=== PATIENT | male | born 1970 | race Caucasian/White ===

== ENCOUNTER → 2016-10-17 | Outpatient (CLI) | payer BC ==
[2016-10-17 18:52] LABS: LYME DISEASE AB IGG NEG (NEG); LYME DISEASE AB IGM NEG (NEG)
[2016-10-17 19:15] LABS: SYNOVIAL FLUID APPEARANCE CLEAR; SYNOVIAL FLUID COLOR YELLOW; SYNOVIAL FLUID MONONUC RELAT 90.8 %; SYNOVIAL FLUID POLYNUC RELAT 9.2 %
[2016-10-19 21:25] LABS: LYME DNA PCR CSF OR SYNOVIAL Not detected (Not Detected); LYME DNA SOURCE Synovial Fluid
== END | disposition home or self-care (01) ==
LOC: C.LABBC 15:42
PROVIDERS: ATTEND Orthopaedic Surgery
DX: M25.462 Effusion, left knee (principal)

== ENCOUNTER 2024-11-04 09:46 | Inpatient (IN) ==
--- NOTE | 2024-11-04 10:06 | Emergency Department Note ---
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 He states that this is a pressure sensation. Worse on the L but seems to be central at times. Happens with exertion and at rest. This is associated with retching, nausea and vomiting. He endorses generalized fatigue and malaise. They deny fever or chills. No cough or congestion. Denies chest palpitations. No shortness of breath. They deny abdominal pain. No urinary complaints. No recent changes in bowel movements. Patient denies recent changes in medications or OTC supplements. Patient offers no other complaints, today. ADDITIONAL HISTORY OBTAINED: Per HPI Chronic Medical/Social Conditions Affecting Care: Per HPI PAST MEDICAL HISTORY: See Below PAST SURGICAL HISTORY: See Below FAMILY HISTORY: See Below SOCIAL HISTORY: See Below HOME MEDICATIONS: See Below ALLERGIES: See Below VITALS: See Below PHYSICAL EXAMINATION: GENERAL: Sitting up in bed, alert, well appearing, well nourished, no distress, non-toxic EYE EXAM: normal conjunctiva. PERRL and EOM's grossly intact. OROPHARYNX: no exudate, no erythema, lips, buccal mucosa, and tongue normal and mucous membranes are moist NECK: supple, no nuchal rigidity, no adenopathy, non-tender LUNGS: Clear to auscultation. Normal chest wall mechanics HEART: no murmurs, regular rate, regular rhythm ABDOMEN: abdomen soft, non-tender, no masses, no rebound or guarding. BACK: Back is symmetrical on inspection and there is no deformity, no midline tenderness, no CVA tenderness. SKIN: no rashes and no bruising UPPER EXTREMITIES: upper extremities are grossly normal. LOWER EXTREMITIES: No pitting edema. NEURO EXAM: Normal sensorium, GCS 15, normal speech, no gross weakness of arms, no gross weakness of legs. MEDICAL DECISION MAKING: Differential diagnoses includes but not limited to ACS, stable vs unstable angina, dysrhythmia, viral URI, pneumonia, pericarditis, pneumothorax, costochondritis, MSK strain, PE, hypertensive emergency, psychological causes, esophageal reflux, gastritis In summary, this is a 54 year old male who presented with chest pain. Differential as above. Nursing notes and pertinent past medical records reviewed. Vital signs reviewed and the patient is hypertensive but otherwise afebrile and HDS. History and presentation revealed extensive cancer history with metastatic esophageal cancer but features of presentation are concerning for angina as well as PE. Physical examination revealed as above. As a result of my initial evaluation, plan for ASA load and laboratory workup. He was felt to be moderate to high risk for PE and CT PE was ordered. Diagnostics interpreted by me include EKG and cardiac monitoring as listed below: -Cardiac Monitoring: An order was placed for continuous cardiac monitoring. The monitor shows a rate of 50-60s with regular rhythm. -ECG: EKG independently interpreted by me reveals sinus bradycardia at 58 bpm. There are frequent PVCs present. No significant ST segment changes to suggest STEMI. Intervals are otherwise within normal limits Patient completed laboratory studies and imaging. CXR independently interpreted by me reveals no evidence of focal consolidation to suggest pna. No large pneumothorax or pleural effusion. The patient was managed with IV Zofran as the patient became nauseous while in the emergency department. Patient was loaded with aspirin. Unclear etiology of his symptoms today. Does have risk factors for cardiovascular disease. Would also consider pulmonary embolism given his metastatic cancer. Patient's symptoms could be related to his metastatic cancer as well. Will give GI cocktail. Patient does have a leukocytosis. Coagulation studies are normal. Mild hypokalemia at 3.3 and IV replenishment ordered. No YASEMIN but increased BUN/creatinine ratio. Likely mild dehydration. AST is mildly elevated and could be reactive to cardiovascular disease. Troponin is significantly elevated. There are concerns for acute myocardial injury. Plan for CT PE to investigate further etiologies of potential troponinemia. Patient will need evaluated by cardiology. Plan for serial EKGs. Repeat EKG independently independently by me reveals sinus bradycardia at a rate of [address] segment changes to suggest STEMI. Some T wave inversions and flattening's in the inferior leads. There is poor R wave progression. There are frequent PVCs present on this rhythm strip. Relatively similar to prior. The patient was discussed with the [facility] cardiology who is agreeable to heparin infusion, serial troponins and EKGs. They did not think the patient needed cardiac catheterization at this time. Given the patient's NSTEMI and intermittent chest pain, will plan for admission to the hospitalist service. Ultimately, the decision was made to admit the patient for NSTEMI in the setting of chest pain and metastatic esophageal cancer. I discussed the case with the hospitalist service via telephone/TigerText and they are agreeable to admit the patient to their services. Based on the above, including the patient's age, coexisting illnesses, labs, imaging, and exam findings the decision to treat as an inpatient. I discussed the patient with the hospitalist team who recommended admission to their services. They received the medications, treatments, interventions indicated above and their condition remained guarded. I discussed my findings with the patient and their family and they understand and agree with the treatment plan. All patient / family questions were answered to their satisfaction. Consults/Care Managements Discussions: Per [facility] ER treatment provided: See above Procedures:none Critical Care: I have personally spent 36 minutes of critical care time in direct management of this patient. This includes bedside care, interpretation of diagnostic studies, and testing, discussion with consultants, patient, and family members, and other require inpatient management activities. This 36 minutes is in excess of all separately billable procedures. The chart was completed utilizing [employer] Speech voice recognition software. Grammatical errors, random word insertions, pronoun errors, and incomplete sentences are an occasional consequence of this system due to software limitations, ambient noise, and hardware issues. Any formal questions or concerns about the content, text, or information contained within the body of this dictation should be directly addressed to the physician for clarification. 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 (Chronic 09/30/24) Encounter for pre-operative examination Esophageal cancer (Chronic) Medical History GERD (gastroesophageal reflux disease) Dilated aortic root Aortic root moderately dilated 4.6 cm Proximal ascending aorta mildly dilated 4.2 cm History of COVID-19 ?2020-cold/flu like symptoms; resolved HTN (hypertension) Surgical History History of lung biopsy RLL -09/30/24 Nausea and vomiting after administration of anesthetic agent Hx of tooth extraction History of esophagogastroduodenoscopy (EGD) EUS on 10/10/22> found fungating and ulcerating mass was found in the middle third of the esophagus and in the lower third of the esophagus and stented. Family History Mother Atrial fibrillation Dementia Heart disease Father , unsure of biological father history No problems noted. 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 Required: No Beliefs That Will Affect Care: None marital status: Single Current Living Situation: Alone current occupational status: employed current occupation: [employer] Feels Safe at Home: Yes Assistive Devices: None Allergies Allergies Allergy/AdvReac Type Severity Reaction Status Date / Time fentanyl AdvReac Mild nausea/vomi Verified 11/14/23 15:44 tting Home Meds Home Medications Medication Instructions Recorded Confirmed acetaminophen 500 mg tablet 500 mg PO Q6H PRN Pain 11/07/22 11/04/24 (Tylenol Extra Strength) Results & Data (ED) Vital Signs Vital Signs - 24 hr 11/04/24 09:49 11/04/24 10:18 11/04/24 10:33 Temperature 36.9 C Temperature Source Skin Pulse Rate 64 64 Pulse Rate [Apical] 62 Pulse Rate from SpO2 Sensor Respiratory Rate 19 18 Respiratory Effort / Characteristics Non-Labored Spontaneous Non-Labored Spontaneous Respiratory Depth Normal Normal Respiratory Pattern Regular Blood Pressure 164/110 H Blood Pressure [Left Arm] 141/95 H Blood Pressure Mean 128 Blood Pressure Mean [Left Arm] 110 Pulse Oximetry 96 98 Oxygen Delivery Method Room Air Room Air Sepsis Recent Fever Within 48 Hours No Sepsis New/Unexplained Change in Mental Status N/A Sepsis Action Taken by Nursing No Action Required 11/04/24 10:33 11/04/24 11:18 11/04/24 12:12 Temperature Temperature Source Pulse Rate 60 63 Pulse Rate [Apical] Pulse Rate from SpO2 Sensor 59 L 60 Respiratory Rate 12 22 Respiratory Effort / Characteristics Respiratory Depth Respiratory Pattern Blood Pressure 161/89 H 164/97 H Blood Pressure [Left Arm] Blood Pressure Mean 113 119 Blood Pressure Mean [Left Arm] Pulse Oximetry 98 96 97 Oxygen Delivery Method Room Air Sepsis Recent Fever Within 48 Hours Sepsis New/Unexplained Change in Mental Status Sepsis Action Taken by Nursing 11/04/24 13:03 Temperature Temperature Source Pulse Rate 60 Pulse Rate [Apical] Pulse Rate from SpO2 Sensor 59 L Respiratory Rate 20 Respiratory Effort / Characteristics Respiratory Depth Respiratory Pattern Blood Pressure 128/78 Blood Pressure [Left Arm] Blood Pressure Mean 94 Blood Pressure Mean [Left Arm] Pulse Oximetry 94 Oxygen Delivery Method Sepsis Recent Fever Within 48 Hours Sepsis New/Unexplained Change in Mental Status Sepsis Action Taken by Nursing Laboratory Data 11/05/24 05:23 11/05/24 05:23 Lab Results 11/04/24 11/04/24 Range/Units 10:07 12:09 WBC 22.32 H (4.8-10.8) K/ul RBC 4.74 (4.70-6.10) M/uL Hgb 14.8 (14.0-18.0) g/dl Hct 42.5 (42.0-52.0) % MCV 89.7 (80.0-100.0) fL MCH 31.2 (25.0-34.0) pg MCHC 34.8 (32.0-36.0) g/dL RDW Std Deviation 44.7 (36.4-46.3) fL RDW Coeff of Martin 13.5 (11.5-14.5) % Plt Count 270 (130-400) K/uL MPV 10.0 (9.4-12.4) fL Immature Gran % (Auto) 0.6 % Neut % (Auto) 82.5 % Lymph % (Auto) 7.3 % [place] % (Auto) 9.5 % Eos % (Auto) 0.0 % Baso % (Auto) 0.1 % Neut # (Auto) 18.41 H (1.40-6.50) K/uL Lymph # (Auto) 1.63 (1.20-3.40) K/uL [place] # (Auto) 2.12 H (0.11-0.59) K/uL Eos # (Auto) 0.00 (0.00-0.50) K/uL Baso # (Auto) 0.03 (0.00-0.20) K/uL Immature Gran # (Auto) 0.13 (0.01-0.20) K/uL PT 11.1 (9.0-12.0) Seconds INR 1.0 (0.9-1.1) APTT 25 (21-31) Seconds PTT Ratio 0.9 Sodium 138 (136-145) mmol/L Potassium 3.3 L (3.5-5.1) mmol/L Chloride 102 (98-107) mmol/L Carbon Dioxide 28 (21-32) mmol/L Anion Gap 8 (3-11) BUN 19 (6-23) mg/dl Creatinine 0.57 L (0.6-1.4) mg/dl Est Cr Clr Drug Dosing 184.7 ml/min eGFR 117.96 BUN/Creatinine Ratio 33.3 H (10-20) Glucose 152 H (70-99(Fasting)) mg/dl Calcium 8.8 (8.6-10.3) mg/dl Magnesium 2.0 (1.7-2.4) mg/dl Total Bilirubin 1.1 H (0.2-1.0) mg/dl AST 65 H (13-39) U/L ALT 26 (7-52) U/L Alkaline Phosphatase 52 (34-104) U/L Troponin I High Sens 8464.0 H* 7869.0 H* (0-20) pg/ml B-Natriuretic Peptide 521 H (0-100) pg/ml Total Protein 7.0 (6.0-8.3) gm/dl Albumin 4.4 (3.4-5.0) gm/dl Globulin 2.6 (2.5-4.0) gm/dl Albumin/Globulin Ratio 1.7 (0.9-2) Lipase 8 L (11-82) U/L Procalcitonin < 0.02 (0-0.5) ng/ml Administered Medications Aspirin (Aspirin 81 Mg Ectab) 81 mg PO DAILY [facility] Stop: 12/05/24 08:59 Last Admin: 11/05/24 07:35 Dose: 81 mg Documented By: jamison Atorvastatin Calcium ([facility]atin 40 Mg Tab) [facility] Stop: 12/05/24 08:59 Last Admin: 11/05/24 07:35 Dose: 40 mg Documented By: Heparin Sodium/Dextrose (Heparin 62326 Unit/500 Ml D5w) 25,000 units in 500 mls @ 31 mls/hr IV .Q16H8M [facility]; Protocol Stop: 12/04/24 11:44 Last Titration: 11/05/24 19:05 Dose: 1,550 units/hr, 31 mls/hr Documented By: jamison Co-signed By: CR Titration: 11/05/24 15:58 Dose: 1,550 units/hr, 31 mls/hr Documented By: jamison Co-signed By: DTT Titration: 11/05/24 11:30 Dose: 0 units/hr, 0 mls/hr Documented By: jamison Co-signed By: DTT Titration: 11/05/24 07:12 Dose: 1,550 units/hr, 31 mls/hr Documented By: CR Co-signed By: jamison Admin: 11/05/24 04:18 Dose: 1,550 units/hr, 31 mls/hr Documented By: CR Co-signed By: SKS Titration: 11/05/24 04:18 Dose: Infused Documented By: CR Co-signed By: SKS Titration: 11/04/24 19:08 Dose: 1,550 units/hr, 31 mls/hr Documented By: CR Co-signed By: LAF Admin: 11/04/24 12:10 Dose: 1,550 units/hr, 31 mls/hr Documented By: LJEvelia Co-signed By: BUD Isosorbide Mononitrate (Isosorbide [place] Extended Rel 30 Mg Tabcr) [facility] Stop: 12/05/24 15:29 Last Admin: 11/05/24 16:58 Dose: 30 mg Documented By: jamison Potassium Chloride (Potassium Chloride 20 Meq/15 Ml Udc) 40 meq PO BID GARETH Stop: 12/05/24 20:59 Last Admin: 11/05/24 20:30 Dose: 40 meq Documented By: CR Discontinued Medications Al Hydrox/Mg Hydrox/Simethicone (Aluminum/Magnesium Susp 30 Ml Udc) 30 ml PO NOW STA Stop: 11/04/24 10:08 Last Admin: 11/04/24 14:49 Dose: Not Given Documented By: MALVIN Aspirin (Aspirin Chew 324 Mg) 324 mg PO NOW STA Stop: 11/04/24 10:03 Last Admin: 11/04/24 10:27 Dose: 324 mg Documented By: OSEAS Fentanyl Citrate (Fentanyl Citrate Pf 100 Mcg/2 Ml Vial) Confirm Administered Dose 100 mcg .ROUTE .STK-MED ONE Stop: 11/05/24 14:26 Last Admin: 11/05/24 15:22 Dose: Not Given Documented By: CARINE Heparin Sodium (Porcine) (Heparin Sod (Porcine) 1000 Unit/Ml) 1 units IV NOW ONE Stop: 11/04/24 11:38 Last Admin: 11/04/24 12:11 Dose: 7,000 units Documented By: MALVIN Co-signed By: BUD Heparin Sodium (Porcine) (Heparin (Porcine) 1000 Unit/Ml 10 Ml ([employer] Use Only)) Confirm Administered Dose 10,000 units .ROUTE .STK-MED ONE Stop: 11/05/24 14:26 Last Admin: 11/05/24 15:22 Dose: Not Given Documented By: CARINE Heparin Sodium/Dextrose (Heparin Iv Adult Wt-Based Standard W/ Initial Bolus Protocol) 1 each IV NOW STA; Protocol Stop: 11/04/24 11:23 Last Admin: 11/05/24 07:25 Dose: Not Given Documented By: jamison Heparin Sodium/Sodium Chloride (Heparin In Nss Infusion 1000 Unit/500 Ml (2 U/Ml) Bag) Confirm Administered Dose 3,000 units IV .STK-MED ONE Stop: 11/05/24 14:26 Last Admin: 11/05/24 15:22 Dose: 3,000 units Documented By: CARINE Famotidine (Pepcid 20mg Iv Push) 20 mg in 5 mls @ 2.5 mls/min IV NOW STA Stop: 11/04/24 10:08 Last Admin: 11/04/24 10:28 Dose: 2.5 mls/min Documented By: OSEAS Potassium Chloride (K Timothy / Wtr) 10 meq in 100 mls @ 100 mls/hr IV Q1H GAREHT Stop: 11/04/24 13:59 Last Infusion: 11/04/24 14:49 Dose: Infused Documented By: Admin: 11/04/24 13:27 Dose: 100 mls/hr Documented By: Infusion: 11/04/24 13:16 Dose: Infused Documented By: Admin: 11/04/24 12:16 Dose: 100 mls/hr Documented By: Infusion: 11/04/24 12:14 Dose: Infused Documented By: Admin: 11/04/24 11:14 Dose: 100 mls/hr Documented By: MALVIN Sodium Chloride (Nss) 500 mls @ 999 mls/hr IV .Q31M ONE Stop: 11/04/24 11:25 Last Infusion: 11/04/24 14:49 Dose: Infused Documented By: Admin: 11/04/24 11:14 Dose: 999 mls/hr Documented By: MALVIN Potassium Chloride (K Timothy / Wtr) 10 meq in 100 mls @ 100 mls/hr IV Q1H GARETH Stop: 11/05/24 11:29 Last Infusion: 11/05/24 17:35 Dose: Infused Documented By: Admin: 11/05/24 16:05 Dose: 100 mls/hr Documented By: Admin: 11/05/24 15:56 Dose: Not Given Documented By: Infusion: 11/05/24 12:01 Dose: Infused Documented By: Admin: 11/05/24 09:57 Dose: 60 mls/hr Documented By: Infusion: 11/05/24 09:57 Dose: Infused Documented By: [facility] Admin: 11/05/24 07:35 Dose: 100 mls/hr Documented By: Iodixanol (Iodixanol (Visipaque) 320 Mg/Ml 100ml) Confirm Administered Dose 1 ml IV .STK-MED ONE Stop: 11/05/24 14:26 Last Admin: 11/05/24 15:22 Dose: Not Given Documented By: CARINE Ioversol (Optiray 320 125ml) 118 ml IV ONCE ONE Stop: 11/04/24 11:09 Last Admin: 11/04/24 11:09 Dose: 118 ml Documented By: ANJU Ioversol (Optiray 350) Confirm Administered Dose 1 ml .ROUTE .STK-MED ONE Stop: 11/05/24 14:26 Last Admin: 11/05/24 16:23 Dose: Not Given Documented By: jamison Midazolam HCl (Midazolam Hcl 1 Mg/Ml 2ml Vial) Confirm Administered Dose 2 mg .ROUTE .STK-MED ONE Stop: 11/05/24 14:26 Last Admin: 11/05/24 15:22 Dose: 2 mg Documented By: CARINE Morphine Sulfate (Morphine Sulfate 4 Mg/Ml 1 Ml Carp\Vial) Confirm Administered Dose 4 mg .ROUTE .STK-MED ONE Stop: 11/05/24 02:04 Last Admin: 11/05/24 02:26 Dose: 4 mg Documented By: JIM Morphine Sulfate (Morphine Sulfate 10 Mg/Ml Carp/Vial) Confirm Administered Dose 10 mg .ROUTE .STK-MED ONE Stop: 11/05/24 14:39 Last Increment: 11/05/24 15:23 Dose: 6 mg Documented By: CARINE Nicardipine HCl (Nicardipine 2,000 Mcg/20 Ml Syr) Confirm Administered Dose 2,000 mcg .ROUTE .STK-MED ONE Stop: 11/05/24 14:26 Last Admin: 11/05/24 15:23 Dose: 2,000 mcg Documented By: CARINE Nitroglycerin (Nitroglycerin Sl 0.4 Mg/Tab Tab) 0.4 mg SL NOW STA Stop: 11/04/24 11:23 Last Admin: 11/04/24 12:16 Dose: 0.4 mg Documented By: MALVIN Nitroglycerin (Nitroglycerin Sl 0.4 Mg/Tab Tab) 0.4 mg SL NOW STA Stop: 11/05/24 01:49 Last Admin: 11/05/24 02:25 Dose: Not Given Documented By: JIM Nitroglycerin/Dextrose (Nitroglycerin/D5w 100mcg/Ml 20ml Syr) Confirm Administered Dose 2,000 mcg .ROUTE .STK-MED ONE Stop: 11/05/24 14:26 Last Admin: 11/05/24 15:23 Dose: 2,000 mcg Documented By: CARINE Ondansetron HCl (Ondansetron Inj 2 Mg/Ml 2 Ml Vial) 4 mg IV NOW STA Stop: 11/04/24 10:30 Last Admin: 11/04/24 10:32 Dose: 4 mg Documented By: GCC Potassium Chloride (Potassium Chloride Crtab 20 Meq Tabcr) 40 meq PO NOW STA Stop: 11/05/24 06:27 Last Admin: 11/05/24 06:42 Dose: 40 meq Documented By: CR Potassium Chloride (Potassium Chloride Crtab 20 Meq Tabcr) 40 meq PO ONE ONE Stop: 11/05/24 09:01 Last Admin: 11/05/24 09:58 Dose: Not Given Documented By: [facility] Imaging Data Radiologist's Impression: Chest X-Ray 11/04/24 09:55 XR chest 1V portable CLINICAL HISTORY: Chest pain, nonspecific COMPARISON STUDY: None FINDINGS: Heart size and pulmonary vasculature are normal. No consolidation or pleural effusion. No pneumothorax. IMPRESSION: No acute findings. ACT 112: Negative or not required by law. Electronically signed by: Matthew Rea M.D. 11/04/2024 10:30 AM Chest CTA 11/04/24 10:06 CT angio chest PE protocol CT DOSE: 865.79 mGy.cm HISTORY: 54 years-old Male with PE, metastatic esophageal cancer with chest pain. Acute chest pain and shortness of breath in a patient with history of esophageal carcinoma TECHNIQUE: Multiple CTA images of the chest were obtained after the intravenous administration of 118 ml Optiray. Coronal and sagittal MIPS were obtained from the axial data set and were submitted for review. All measurements were obtained according to NASCET criteria. A dose lowering technique was utilized adhering to the principles of ALARA. COMPARISON: Radiation therapy scan of the chest 10/28/2024, PET CT 09/08/2024 FINDINGS: CTA: Mild cardiomegaly. There is no pericardial effusion. Mild fusiform dilation of the ascending thoracic aorta, 4.1 x 4.3 cm. The aorta is not well evaluated secondary to contrast bolus timing. No pulmonary emboli are identified. CT CHEST: No thyroid nodule or pathologically enlarged lymph nodes identified. Postoperative changes of esophagectomy with gastric pull-through again noted. 1.5 x 1.2 cm solid nodule within the basal right lower lobe on image 79 series 4 similar prior where it measured 1.4 cm and was hypermetabolic on the PET/CT. Additional 6 mm solid nodule of the left lower lobe on image 87 is also stable. Central airways are patent. No new pulmonary nodules are identified. No acute upper abdominal abnormality. The soft tissues are within normal limits. No acute fracture or destructive bone lesion identified. IMPRESSION: 1. No pulmonary emboli identified. 2. The two solid pulmonary nodules seen on the recent PET/CT measuring up to 1.5 cm appear stable in size and are again suspicious for metastatic disease. 3. No lymphadenopathy. 4. Mild dilation of the ascending thoracic aorta, 4.3 cm. ACT 112: Negative or not required by law. The above report was generated using voice recognition software. It may contain grammatical, syntax or spelling errors. Electronically signed by: Michelet Allen M.D. 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
[2024-11-04 10:23] LABS: Hematocrit (blood only) 42.5 % (42.0-52.0); Hemoglobin 14.8 g/dl (14.0-18.0); Immature Granulocytes # (auto) 0.13 K/uL (0.01-0.20); Immature Granulocytes % (auto) 0.6 %; Mean Corpuscular Hemoglobin 31.2 pg (25.0-34.0); Mean Corpuscular Volume 89.7 fL (80.0-100.0); Platelet Count 270 K/uL (130-400); RDW Standard Deviation 44.7 fL (36.4-46.3); Red Blood Count 4.74 M/uL (4.70-6.10); White Blood Count 22.32 K/ul (4.8-10.8)
[2024-11-04] MEDS: ASPIRIN CHEW 324 MG PO STA (10:27)
[2024-11-04] MEDS: ALUMINUM/MAGNESIUM SUSP 30 ML UDC PO STA (10:27)
[2024-11-04] MEDS: FAMOTIDINE 20MG IV PUSH 20 MG/5 ML SYR IV STA (10:28)
[2024-11-04] MEDS: ONDANSETRON INJ 2 MG/ML 2 ML VIAL IV STA (10:32)
--- NOTE | 2024-11-04 10:32 | XRay Report ---
XR chest 1V portable CLINICAL HISTORY: Chest pain, nonspecific COMPARISON STUDY: None FINDINGS: Heart size and pulmonary vasculature are normal. No consolidation or pleural effusion. No p neumothorax. IMPRESSION: No acute findings. ACT 112: Negative or not required by law. Electronically signed by: Matthew Rea M.D. 11/04/2024 10:30 AM
[2024-11-04 10:44] LABS: Alanine Aminotransferase 26.0 U/L (7-52); Albumin Globulin Ratio 1.7 (0.9-2); Alkaline Phosphatase 52.0 U/L (34-104); Anion Gap 8.0 (3-11); Bilirubin,Total 1.1 mg/dl (0.2-1.0); Blood Urea Nitrogen 19.0 mg/dl (6-23); Calcium 8.8 mg/dl (8.6-10.3); Carbon Dioxide 28.0 mmol/L (21-32); Chloride 102.0 mmol/L (98-107); Creatinine Clr Calc Pharmacy 184.7 ml/min; Globulin 2.6 gm/dl (2.5-4.0); Glucose 152.0 mg/dl (70-99(Fasting)); Lipase 8.0 U/L (11-82); Magnesium 2.0 mg/dl (1.7-2.4); Potassium 3.3 mmol/L (3.5-5.1); Sodium 138.0 mmol/L (136-145); Total Protein 7.0 gm/dl (6.0-8.3)
[2024-11-04 10:49] LABS: INR 1.0 (0.9-1.1); Partial Thromboplastin Time 25 Seconds (21-31); Prothrombin Time 11.1 Seconds (9.0-12.0)
[2024-11-04] MEDS: OPTIRAY 320 125ml IV ONE (11:09)
[2024-11-04] MEDS: POTASSIUM CHLORIDE / WTR 10 MEQ/100 ML PLCT IV SCH (11:14)
[2024-11-04] MEDS: SODIUM CHLORIDE 0.9% 500 ML IV ONE (11:14)
--- NOTE | 2024-11-04 11:42 | CT Scan Report ---
CT angio chest PE protocol CT DOSE: 865.79 mGy.cm HISTORY: 54 years-old Male with PE, metastatic esophageal cancer with chest pain. Acute chest pain and shortness of breath in a patient with history of esophageal carcinoma TECHNIQUE: Multiple CTA images of the chest were obtained after the intravenous administration of 118 ml Optiray. Coronal and sagittal MIPS were obtained from the axial data set and were submitted for review. All measurements were obtained according to NASCET criteria. A dose lowering technique was u tilized adhering to the principles of ALARA. COMPARISON: Radiation therapy scan of the chest 10/28/2024, PET CT 09/08/2024 FINDINGS: CTA: Mild cardiomegaly. There is no pericardial effusion. Mild fusiform dilation of the ascending thoracic aorta, 4.1 x 4.3 cm. The aorta is not well evaluated secondary to contrast bolus timing. No pulmonar y emboli are identified. CT CHEST: No thyroid nodule or pathologically enlarged lymph nodes identified. Postoperative changes of esophag ectomy with gastric pull-through again noted. 1.5 x 1.2 cm solid nodule within the basal right lower lobe on image 79 series 4 similar prior where it measured 1.4 cm and was hypermetabolic on the PET/CT . Additional 6 mm solid nodule of the left lower lobe on image 87 is also stable. Central airways are patent. No new pulmonary nodules are identified. No acute upper abdominal abnormality. The soft tissues are within normal limits. No acute fracture or destructive bone lesion identified. IMPRESSION: 1. No pulmonary emboli identified. 2. The two solid pulmonary nodules seen on the recent PET/CT measuring up to 1.5 cm appear stable in size and are again suspicious for metastatic disease. 3. No lymphadenopathy. 4. Mild dilation of the ascending thoracic aorta, 4.3 cm. ACT 112: Negative or not required by law. The above report was generated using voice recognition software. It may contain grammatical, syntax o r spelling errors. Electronically signed by: Michelet Allen M.D. 11/04/2024 11:41 AM
[2024-11-04] MEDS: HEPARIN 25000 UNIT/500 ML D5W 25,000 UNITS/500 ML BAG IV SCH (12:10)
[2024-11-04] MEDS: HEPARIN SOD (PORCINE) 1000 UNIT/ML IV ONE (12:11)
[2024-11-04] MEDS: NITROGLYCERIN SL 0.4 MG/TAB TAB SL STA (12:16)
--- NOTE | 2024-11-04 12:25 | Electrocardiogram Report ---
Test Reason : Blood Pressure : */* mmHG Vent. Rate : 58 BPM Atrial Rate : 58 BPM P-R Int : 156 ms QRS Dur : 110 ms QT Int : 458 ms P-R-T Axes : 48 1 -37 degrees QTcB Int : 449 ms Sinus bradycardia with frequent Premature ventricular complexes Inferior infarct (cited on or before 27-Sep-2023) Cannot rule out Anterior infarct , age undetermined Abnormal ECG When compared with ECG of 27-Sep-2023 12:30, Premature ventricular complexes are now Present Minimal criteria for Anterior infarct are now Present Inverted T waves have replaced nonspecific T wave abnormality in Inferior leads Confirmed by Gutierrez Costa ([id number]) on 11/04/2024 12:25:13 PM Referred By: Confirmed By: Gutierrez Costa
--- NOTE | 2024-11-04 13:05 | Communication Note ---
Date of Service: November 04, 2024 Attending addendum: The patient was seen and examined in emergency room He has significant past medical history of esophageal adenocarcinoma status post surgery and radiation treatment about a year ago He has been complaining of chest pain for about 4 to 6 weeks and now the pain has been radiating to the back and also to the arms with associated shortness of breath Has not been getting eating or drinking enough for the last few days or so Denies any fever and chills, any cough, any abdominal pain but complains to have nausea and vomiting On examination Distress due to epigastric/central chest discomfort Hemodynamically stable and is afebrile Chestclear to auscultation bilaterally Abdomenbenign HeartS1-S2, regular Extremitiesno edema His admission labs, EKG and imaging studies reviewed Significant findings of white count 22,000 without any evidence of infection and very high troponin of 8464 without any significant EKG changes CT of the chest did not show any pulmonary embolism but it did show 2 solid pulmonary nodules seen on recent PET/CT imaging about 1.5 cm suspected to be metastatic disease The ER physician did discuss with the document manager and he will be put on intravenous heparin, serial troponins and echocardiogram Chest pain with very high troponin to rule out ACS Esophageal adenocarcinoma with ongoing problem with swallowing recently Scheduled for outpatient radiation treatment Will need EGD which is scheduled as an outpatient as well but that can be expedited due to recent increased problem with swallowing Agree with assessment and plan as outlined above by Cheryle Ayala PA-C and take the full responsibility of care in the hospital Dr Evelia Mendoza
--- NOTE | 2024-11-04 13:32 | History & Physical Report ---
Date of Service November 04, 2024 Assessment & Plan (1) Chest pain: (2) Elevated troponin: Plan: Patient is a 54-year-old male with past medical history significant for lower esophageal adenocarcinoma s/p neoadjuvant chemotherapy plus radiation therapy and esophagectomy with bilateral lower lobe lung metastases, HTN and fusiform enlargement of the ascending thoracic aorta who presented to the ED with complaint of intermittent chest pain episodes x past several weeks. Pain initially started primarily in the left arm, but over the past several weeks, it has progressed in intensity, frequency and now it radiates across the chest wall into the right shoulder and around the back. Associated sx including SOB, diaphoresis and N/V. Occurs both at rest and with exertion. Initial troponin 8464, repeat troponin 7869 EKG: sinus bradycardia with occasional PVCs CXR grossly unremarkable Chest CTA: no PE identified, mild dilation of the ascending thoracic aorta ( unchanged from prior imaging as outlined below) ED provider discussed case with on-call SD bpm analyst, Dr. Costa, who recommended initiation of IV heparin and 324mg ASA load TTE ordered and pending Appreciate formal cardiology consult (patient previously seen by [facility] cardiology in the OP setting therefore Dr. Meyer consulted) S/p SL nitroglycerin x 1 in ED Patient still with some chest discomfort at the time of my eval, primarily midsternal, but feels it has significantly improved Follow troponin trend EKG with chest pain as needed Check lipid panel, A1c (A1c previously 5.9% 2yr ago) Will keep NPO at SD pending cardiology eval (3) Leukocytosis: Plan: WBC 22K on admission No clear source of infection identified at this time Procalcitonin negative Will check blood cultures for completeness however will monitor off ABX for now given no clear infectious source Possibly reactive ISO above, continue to monitor (4) 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: Plan: S/p neoadjuvant chemotherapy as well as radiation and esophagectomy in 2022 CTAP done in September 2023 at [facility] showed no evidence of recurrent disease CT chest done on 04/10/24 showed slight enlargement of the previously noted right lower lobe of the noted by about 2mm, currently about 7mm, new 3mm left lower lobe nodule Repeat CT scan of the chest on 08/04/24 showed further enlargement of the bilateral lower lobe lung nodules which was suspicious Underwent biopsy of right lower lobe lung nodule on 09/30/24 which confirmed metastatic adenocarcinoma Patient scheduled to undergo SBRT treatment starting next week at [facility] for the right lower lobe lung nodule Scheduled for upper GI endoscopic evaluation on 12/07/24 Has been dealing with poor appetite over past few days, admits to poor dentition which can at times make swallowing difficult Will obtain HEAD BELLHOP CAPTAIN eval given his history and risk of aspiration development however patient denies any lula aspiration episodes 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 Mendoza. Please see addendum. I spent a total of 68 minutes coordinating, documenting, and providing care for this patient excluding time spent in the performance of separately billed services or time spent by another provider/QHP. This included personally reviewing all current laboratories and imaging studies, medical reconciliation, outpatient chart review and discussion with specialists. This chart was completed in part utilizing Speech Voice Recognition Software. Grammatical errors, random word insertions, pronoun errors, and incomplete sentences are an occasional consequence of this system due to software limitations, ambient noise, and hardware issues. Any formal questions or concerns about the content, text, or information contained within the body of this dictation should be directly addressed to the provider for clarification. History of Present Illness Chief Complaint: Chest pain Primary Care Provider: Moe Doan MD Patient is a 54-year-old male with past medical history significant for lower esophageal adenocarcinoma s/p neoadjuvant chemotherapy plus radiation therapy and esophagectomy with bilateral lower lobe lung metastases, HTN and fusiform enlargement of the ascending thoracic aorta who presented to the ED with complaint of intermittent chest pain x past several weeks. History obtained from the patient, discussion with ED provider and associated chart review. Admits to intermittent chest pain for the past several weeks. Pain occurs both at rest and with exertion. Pain initially started primarily in the left arm, but over the past several weeks, it has progressed in intensity, frequency and now it radiates across the chest wall into the right shoulder and around the back. Experiencing some paresthesias in his left arm at times with the pain. He also typically experiences SOB, diaphoresis and nausea with these chest pain episodes. Mentions he has vomited a few times during these events as well. Patient had seen his PCP on 11/02/2024, for these complaints. Had EKG done at that time which revealed sinus bradycardia without ischemic changes. It was recommended that he come to the ED for further evaluation at that time however he refused. He was prescribed SL nitroglycerin, though, which he did use 1 time Saturday evening and it seemed to help his pain subside at the time. However, his pain returned, which prompted him to come to the ED today. History of HTN, prediabetes and tobacco use. Stopped smoking after his esophageal cancer diagnosis in 2022. Hgb A1c 5.9% 2yr ago. Recreational marijuana use. No alcohol use. Admits to somewhat poor po intake for the past few days. Feels he has no appetite due to recent intensity and increased frequency of his chest pain. No recorded fevers, but feels he has been "running hot." Tolerates a soft bite- sized diet. Denies any lula aspiration events. 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 (Chronic 09/30/24) Encounter for pre-operative examination Esophageal cancer (Chronic) Medical History GERD (gastroesophageal reflux disease) Dilated aortic root Aortic root moderately dilated 4.6 cm Proximal ascending aorta mildly dilated 4.2 cm History of COVID-19 ?2020-cold/flu like symptoms; resolved HTN (hypertension) Surgical History History of lung biopsy RLL -09/30/24 Nausea and vomiting after administration of anesthetic agent Hx of tooth extraction History of esophagogastroduodenoscopy (EGD) EUS on 10/10/22> found fungating and ulcerating mass was found in the middle third of the esophagus and in the lower third of the esophagus and stented. Family History Mother Atrial fibrillation Dementia Heart disease Father , unsure of biological father history No problems noted. Grandmother (Maternal) Diabetes mellitus, type II Other No family history of adverse response to anesthesia Social History Smoking Status: Never smoker Tobacco Type: Cigarettes and Smokeless Tobacco (Dip or Chew) Cigarettes Per Day: 10/09/22; Second Hand Exposure: No; Do You Dip or Chew Tobacco: Yes (quit 10/09/22); Hx Alcohol Use: No Hx Substance Use: No Preferred Language: Iraqi Communication Ability: Effective Visual Impairment: No Limitations Hearing Ability: Normal Sales Support Engineer Required: No Beliefs That Will Affect Care: None marital status: Single Current Living Situation: Alone current occupational status: employed 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 Physical Exam Physical Exam: General: M, mild discomfort with transient CP but NAD, A&Ox3 HEENT: Normocephalic, atraumatic, moist mucous membranes Respiratory: Normal respiratory effort, CTAB Cardiovascular: RRR, normal peripheral pulses, no BLE edema Abdomen/GI: Normal bowel sounds, soft, nontender to palpation in all quadrants Extremities/MSK: No cyanosis or clubbing, extremities motor strength intact, moves all extremities Neurologic: No overt focal deficits, CN's II-XI not formally tested but appear grossly intact bilaterally Results & Data Results & Data Vital Signs (Past 12 Hours) Vital Signs Temp Pulse Pulse Resp BP BP Pulse Ox 11/04/24 12:12 63 22 164/97 H 97 11/04/24 11:18 60 12 161/89 H 96 11/04/24 10:33 98 11/04/24 10:33 62 18 141/95 H 98 11/04/24 10:18 64 11/04/24 09:49 36.9 C 64 19 164/110 H 96 O2 Del Method 11/04/24 12:12 11/04/24 11:18 11/04/24 10:33 Room Air 11/04/24 10:33 Room Air 11/04/24 10:18 11/04/24 09:49 Room Air Laboratory Results Short CBC 11/04/24 Range/Units 10:07 WBC 22.32 H (4.8-10.8) K/ul Hgb 14.8 (14.0-18.0) g/dl Hct 42.5 (42.0-52.0) % Plt Count 270 (130-400) K/uL BMP 11/04/24 10:07 Sodium 138 Potassium 3.3 L Chloride 102 Carbon Dioxide 28 BUN 19 Creatinine 0.57 L Glucose 152 H Calcium 8.8 Liver Function 11/04/24 Range/Units 10:07 Total Bilirubin 1.1 H (0.2-1.0) mg/dl AST 65 H (13-39) U/L ALT 26 (7-52) U/L Alkaline Phosphatase 52 (34-104) U/L Albumin 4.4 (3.4-5.0) gm/dl Diagnostic Findings Chest X-Ray 11/04/24 09:55 XR chest 1V portable CLINICAL HISTORY: Chest pain, nonspecific COMPARISON STUDY: None FINDINGS: Heart size and pulmonary vasculature are normal. No consolidation or pleural effusion. No pneumothorax. IMPRESSION: No acute findings. ACT 112: Negative or not required by law. Electronically signed by: Matthew Rea M.D. 11/04/2024 10:30 AM Chest CTA 11/04/24 10:06 CT angio chest PE protocol CT DOSE: 865.79 mGy.cm HISTORY: 54 years-old Male with PE, metastatic esophageal cancer with chest pain. Acute chest pain and shortness of breath in a patient with history of esophageal carcinoma TECHNIQUE: Multiple CTA images of the chest were obtained after the intravenous administration of 118 ml Optiray. Coronal and sagittal MIPS were obtained from the axial data set and were submitted for review. All measurements were obtained according to NASCET criteria. A dose lowering technique was utilized adhering to the principles of ALARA. COMPARISON: Radiation therapy scan of the chest 10/28/2024, PET CT 09/08/2024 FINDINGS: CTA: Mild cardiomegaly. There is no pericardial effusion. Mild fusiform dilation of the ascending thoracic aorta, 4.1 x 4.3 cm. The aorta is not well evaluated secondary to contrast bolus timing. No pulmonary emboli are identified. CT CHEST: No thyroid nodule or pathologically enlarged lymph nodes identified. Postoperative changes of esophagectomy with gastric pull-through again noted. 1.5 x 1.2 cm solid nodule within the basal right lower lobe on image 79 series 4 similar prior where it measured 1.4 cm and was hypermetabolic on the PET/CT. Additional 6 mm solid nodule of the left lower lobe on image 87 is also stable. Central airways are patent. No new pulmonary nodules are identified. No acute upper abdominal abnormality. The soft tissues are within normal limits. No acute fracture or destructive bone lesion identified. IMPRESSION: 1. No pulmonary emboli identified. 2. The two solid pulmonary nodules seen on the recent PET/CT measuring up to 1.5 cm appear stable in size and are again suspicious for metastatic disease. 3. No lymphadenopathy. 4. Mild dilation of the ascending thoracic aorta, 4.3 cm. ACT 112: Negative or not required by law. The above report was generated using voice recognition software. It may contain grammatical, syntax or spelling errors. Electronically signed by: Michelet Allen M.D. 11/04/2024 11:41 AM Medications Administered Potassium Chloride (K Timothy / Wtr) 10 meq in 100 mls @ 100 mls/hr IV Q1H [facility] Stop: 11/04/24 13:59 Last Admin: 11/04/24 12:16 Dose: 100 mls/hr Documented By: Infusion: 11/04/24 12:14 Dose: Infused Documented By: Admin: 11/04/24 11:14 Dose: 100 mls/hr Documented By: MALVIN Heparin Sodium/Dextrose (Heparin 82292 Unit/500 Ml D5w) 25,000 units in 500 mls @ 31 mls/hr IV .Q16H8M [facility]; Protocol Stop: 12/04/24 11:44 Last Admin: 11/04/24 12:10 Dose: 1,550 units/hr, 31 mls/hr Documented By: MALVIN Co-signed By: BUD Discontinued Medications Aspirin (Aspirin Chew 324 Mg) 324 mg PO NOW STA Stop: 11/04/24 10:03 Last Admin: 11/04/24 10:27 Dose: 324 mg Documented By: OSEAS Heparin Sodium (Porcine) (Heparin Sod (Porcine) 1000 Unit/Ml) 1 units IV NOW ONE Stop: 11/04/24 11:38 Last Admin: 11/04/24 12:11 Dose: 7,000 units Documented By: MALVIN Co-signed By: BUD Famotidine (Pepcid 20mg Iv Push) 20 mg in 5 mls @ 2.5 mls/min IV NOW STA Stop: 11/04/24 10:08 Last Admin: 11/04/24 10:28 Dose: 2.5 mls/min Documented By: OSEAS Sodium Chloride (Nss) 500 mls @ 999 mls/hr IV .Q31M ONE Stop: 11/04/24 11:25 Last Admin: 11/04/24 11:14 Dose: 999 mls/hr Documented By: MALVIN Ioversol (Optiray 320 125ml) 118 ml IV ONCE ONE Stop: 11/04/24 11:09 Last Admin: 11/04/24 11:09 Dose: 118 ml Documented By: ANJU Nitroglycerin (Nitroglycerin Sl 0.4 Mg/Tab Tab) 0.4 mg SL NOW STA Stop: 11/04/24 11:23 Last Admin: 11/04/24 12:16 Dose: 0.4 mg Documented By: MALVIN Ondansetron HCl (Ondansetron Inj 2 Mg/Ml 2 Ml Vial) 4 mg IV NOW STA Stop: 11/04/24 10:30 Last Admin: 11/04/24 10:32 Dose: 4 mg Documented By: OSEAS Code Status & VTE Plan Code Status FULL CODE - As per discussion with the patient at bedside in the ED. VTE Prophylaxis Plan VTE Prophylaxis will be ordered: Yes (1) Chest pain Chest pain type: unspecified Qualified Code(s): R07.9 - Chest pain, unspecified (3) Leukocytosis Leukocytosis type: unspecified Qualified Code(s): D72.829 - Elevated white blood cell count, unspecified
--- NOTE | 2024-11-04 14:22 | Cardiology Consultation ---
Date of Consultation November 04, 2024 Assessment & Plan (1) Chest pain: (2) NSTEMI (non-ST elevated myocardial infarction): (3) Hypokalemia: (4) Ascending aorta enlargement: (5) Esophageal cancer: Plan Assessment: 54 year old male with history of esophageal cancer s/p esop hagectomy/chemo and radiation, and mets to the lungs that presents with several weeks of crescendo chest pain that has gotten progressively worse over past several weeks with a significant event 2 night ago requiring SL NTG. EKG with suggestion of prior inferior infarct and possible anterior event. Troponin with modest elevation. Cardiology consulted for further evaluation and recommendations. 1. Chest pain 2. NSTEMI -patient with several weeks of chest pain described in a crescendo pattern concerning for angina. No prior history of CAD, but does endorse family history as well as multiple risk factors. -Significant Chest pain event 2 nights ago with relief after taking SL NTG -Troponin with modest elevation, heparin gtt has been started. -Review of telemetry shows SR with occasional PVC's. -H/H, and Platelet count stable. -Start ASA 81mg -NPO after midnight. -Echocardiogram pending 3. Hypokalemia -Currently receiving supplementation 4. Ascending aorta enlargement -History of echo in 2022 showing ascending aorta enlargement of 4.3cm -Echo pending 5. Esophageal cancer -Prior esophagectomy with chemo and radiation, recent dx of lung mets confirmed by recent CT guided percutaneous RLL lung lesion biopsy -Ongoing management per primary team and Heme/Onc. Follows with Dr. Schofield. Case has been discussed with Dr. Meyer. Further recommendations regarding plan of care as per his assessment. I spent a total of 55 minutes on the date of service in preparation, delivery, documentation of the care provided to the patient excluding any time spent in the performance of separately billed services. ISIDRA Eid [facility] Cardiology [facility] Supervising Physician Co-Signing Physician Notes Attending attestation: Case reviewed with the advanced practitioner. I have personally performed a history and physical examination on the patient. I have reviewed the advanced practitioner's documentation on the date of service referenced in note, and I agree with, and take responsibility for the plan of care. Subjective: Patient with crescendo angina onset 11/02/24. Currently comfortable without chest pain. Heparin infusion. Exam: CV: regular rhythm, No murmurs, no edema Data: Summary of transthoracic echocardiogram performed today 11/04/2024 and int erpreted dependently: Sinus rhythm with occasional PVCs present during echocardiogram study. There is focal hypokinesis of the basal and mid inferior wall and basal posterior wall with mild diffuse hypokinesis otherwise. The left ventricle is mildly dilated. Left ventricular systolic function is moderately reduced. Left Ventricular Ejection Fraction = 35-40%. Grade I diastolic dysfunction, (abnormal relaxation pattern). Mild aortic regurgitation is present. Aortic root is moderately enlarged with diameter of 4.8 cm. The proximal ascending aorta is not visualized adequately enough to allow for measurement. Compared to the outpatient study performed in 2022, regional wall motion abnormalities are now noted, as well as mild left ventricular chamber dilatation and a moderately reduced ejection fraction. The aortic root enlargement and mild aortic valve regurgitation was noted on the previous study. EKG performed today reveals sinus rhythm with new T wave approximator leads which is a new finding for him. Impression/ Plan: NSTEMI , HS troponin Stage IV esophageal CA, two lung nodules 1.5 cm, recent CT guided biopsy September , h/o esophagectomy 01/2023 4.8 cm aortic root, 4.3 cm ascending aorta, mild aortic regurgitation Newly recognized moderate LV systolic dysfunction, likely ischemic CM * ASA 81 mg daily, heparin gtt, atorvastatin. * Plan for cardiac catheterization tomorrow. * No metoprolol as HR in 50s to 60s at baseline * If pt has recurrent CP , would add topical nitroglycerin paste I spent a total of 30 minutes coordinating, documenting, and providing care for this patient excluding time spent in the performance of separately billed services or time spent by another provider. Brent Meyer DO History of Present Illness Reason for Consultation: "Chest pain, very high troponin" Requesting Physician: Tommie morrow History of Present Illness HPI: patient is a 54 year old male with PMHx significant for lower esophageal adenocarcinoma s/p neoadjuvant chemotherapy plus radiation therapy and esophagectomy, Bilateral lower lobe lung metastases, HTN, enlargement of the ascending thoracic aorta, HTN, prediabetes and tobacco use who presents with several weeks of chest pain. Reports that the pain is intermittent in nature, occurs with both rest and exertion, worse with exertion. patient feels the pain initially started in his left arm but now radiates across the chest. Describes the pain as a dull pressure that then crescendos and becomes extremely sharp and intense. Episodes last approx 45 minutes and then subside. Patient did see her family doctor on 11/02/24 for these symptoms. EKG showed SB with no acute EKG changes; however, there is inverted T waves in lead III which was cited previously. he was recommended to present to the ER at that time, but declined. His pain returned that evening and patient reports that it was "the worse so far yet". he provides the same description of his pain, but reports associated nausea and vomiting with the event. Patient somewhat attributes the nausea and vomiting to having increased secretions from his prior cancer surgery/status. Patient states that he took 1 SL NTG and felt "so much better", but when the pain returned today he felt that he needed to present. Patient's mother is , but patient knows she had a significant history of coronary disease. His step siblings are on their way to the hospital and he states they have much better knowledge of her health history. Patient had no contact with his biological father in adulthood and does not know of his medical history. EKG on arrival shows SB with PVC's Rate 55bpm. T wave inversion in inf leads (III) and T wave changes in anterior leads suggestive of possible prior infarct. Upon seeing patient in examination he is resting comfortably at this time and is chest pain free. Chest xray negative CTA Chest IMPRESSION: 1. No pulmonary emboli identified. 2. The two solid pulmonary nodules seen on the recent PET/CT measuring up to 1.5 cm appear stable in size and are again suspicious for metastatic disease. 3. No lymphadenopathy. 4. Mild dilation of the ascending thoracic aorta, 4.3 cm. WBC 22.32 Serum K 3.3 --Currently received Potassium supplementation High sensitivity troponin 8464/7869. --Patient is currently on a heparin gtt Of note, patient follows with Dr. Schofield in the [facility]onc Cancer center and is to start radiation for lung mets next week. He is also slated for an upper endoscopy 12/07/24 for surveillance due to recent CT findings. Allergies Allergy/AdvReac Type Severity Reaction Status Date / Time fentanyl AdvReac Mild nausea/vomi Verified 11/14/23 15:44 tting Home Medications Medication Instructions Recorded Confirmed Type acetaminophen 500 mg tablet 500 mg PO Q6H PRN Pain 11/07/22 11/04/24 History (Tylenol Extra Strength) Patient History Medical History GERD (gastroesophageal reflux disease) Dilated aortic root Aortic root moderately dilated 4.6 cm Proximal ascending aorta mildly dilated 4.2 cm History of COVID-19 ?2020-cold/flu like symptoms; resolved HTN (hypertension) Surgical History History of lung biopsy RLL -09/30/24 Nausea and vomiting after administration of anesthetic agent Hx of tooth extraction History of esophagogastroduodenoscopy (EGD) EUS on 10/10/22> found fungating and ulcerating mass was found in the middle third of the esophagus and in the lower third of the esophagus and stented. Family History Mother Atrial fibrillation Dementia Heart disease Father , unsure of biological father history No problems noted. 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 Beliefs That Will Affect Care: None marital status: Single Current Living Situation: Alone current occupational status: employed current occupation: [employer] Feels Safe at Home: Yes Assistive Devices: Glasses Review of Systems Review of Systems: All systems reviewed & are unremarkable except as noted in HPI & below Physical Exam Constitutional: well developed and well nourished; no acute distress and not ill appearing Neck: normal visual inspection and trachea midline Respiratory: normal respiratory effort, lungs clear to auscultation no cough Auscultation: no crackles, no rales, no rhonchi and no wheezes Cardiovascular: RRR, no murmur, no edema (occasional PVCs) Heart Sounds: normal S1 and normal S2; no murmur Vessels: dorsalis pedis pulses present; no JVD Extremities: no edema Skin: no rashes, warm and dry Psychiatric: A+Ox3, euthymic affect Results & Data Vital Signs (Past 12 Hours) Vital Signs Temp Pulse Pulse Resp BP BP Pulse Ox 11/04/24 14:19 57 L 11/04/24 12:12 63 22 164/97 H 97 11/04/24 11:18 60 12 161/89 H 96 11/04/24 10:33 98 11/04/24 10:33 62 18 141/95 H 98 11/04/24 10:18 64 11/04/24 09:49 36.9 C 64 19 164/110 H 96 O2 Del Method 11/04/24 14:19 11/04/24 12:12 11/04/24 11:18 11/04/24 10:33 Room Air 11/04/24 10:33 Room Air 11/04/24 10:18 11/04/24 09:49 Room Air Laboratory Results Cardiac Enzymes 11/04/24 11/04/24 Range/Units 10:07 12:09 AST 65 H (13-39) U/L Troponin I High Sens 8464.0 H* 7869.0 H* (0-20) pg/ml B-Natriuretic Peptide 521 H (0-100) pg/ml Coagulation 11/04/24 Range/Units 10:07 PT 11.1 (9.0-12.0) Seconds APTT 25 (21-31) Seconds B-Natriuretic Peptide 521 H (0-100) pg/ml CBC 11/04/24 Range/Units 10:07 WBC 22.32 H (4.8-10.8) K/ul RBC 4.74 (4.70-6.10) M/uL Hgb 14.8 (14.0-18.0) g/dl Hct 42.5 (42.0-52.0) % Plt Count 270 (130-400) K/uL Neut # (Auto) 18.41 H (1.40-6.50) K/uL Lymph # (Auto) 1.63 (1.20-3.40) K/uL [place] # (Auto) 2.12 H (0.11-0.59) K/uL Eos # (Auto) 0.00 (0.00-0.50) K/uL Baso # (Auto) 0.03 (0.00-0.20) K/uL Comprehensive Metabolic Panel 11/04/24 Range/Units 10:07 Sodium 138 (136-145) mmol/L Potassium 3.3 L (3.5-5.1) mmol/L Chloride 102 (98-107) mmol/L Carbon Dioxide 28 (21-32) mmol/L BUN 19 (6-23) mg/dl Creatinine 0.57 L (0.6-1.4) mg/dl Glucose 152 H (70-99(Fasting)) mg/dl Calcium 8.8 (8.6-10.3) mg/dl AST 65 H (13-39) U/L ALT 26 (7-52) U/L Alkaline Phosphatase 52 (34-104) U/L Total Protein 7.0 (6.0-8.3) gm/dl Albumin 4.4 (3.4-5.0) gm/dl Intake and Output 11/03/24 11/04/24 11/04/24 22:59 06:59 14:59 Intake Total 200 / 200 Balance 200 / 200 Intake: IV 200 / 200 Potassium Chloride / Wtr 10 meq 200 / 200 In 100 ml @ 100 mls/hr IV Q1H [facility] Rx#:[id number] Other: Weight 102.4 kg Weight Measurement Method Chair Scale Patient Weight 11/05/24 06:59 Weight 102.4 kg Diagnostic Findings Stress echocardiogram 09/11/2022 Interpretation Summary The examination is adequate to evaluate the referral indication. STRESS STUDY: The stress echo is negative for inducible ischemia. The exercise test was terminated due to fatigue and shortness of breath. No chest discomfort was reported. The heart rate response to exercise was normal. The blood pressure response to exercise was normal. A high workload was achieved, 9 minutes and 22 seconds on a Adryan protocol, 10.5 METs. The stress EKG response is negative for ischemia. The T-wave inversions observed on the resting baseline EKG performed 08/29/2022 are not present on the resting/stress EKG performed today. Occasional premature ventricular contractions were noted at rest that resolved with progressive exercise and returned to their baseline frequency in the post stress recovery interval. RESTING STUDY: Mild concentric left ventricular hypertrophy is present. The qualitative LV ejection fraction is 55-59% (normal). The aortic valve has three leaflets. Aortic stenosis is absent. Mild aortic valve regurgitation is present. The aortic root is moderately dilated with diameter of 4.6 cm. The proximal ascending aorta is mildly dilated with diameter 4.2 cm. Consider further assessment of the aortic root and ascending thoracic aorta with a non coronary CT angiogram and cardiology consultation after. [place] [address] IN/OBS CONSULT LVL 5,80M Patient Type New Diagnoses Chest pain, unspecified type R07.9 Chest pain type: unspecified NSTEMI (non-ST elevated myocardial infarction) I21.4 Hypokalemia E87.6 Ascending aorta enlargement I77.89 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 C15.4 Malignant neoplasm of esophagus location: middle third Time Spent (min) 85 Comment 55 minutes by Eduardo Wahl, [address] Meyer (1) Chest pain Chest pain type: unspecified Qualified Code(s): R07.9 - Chest pain, unspecified (5) Esophageal cancer Malignant neoplasm of esophagus location: middle third Qualified Code(s): C15.4 - 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
--- NOTE | 2024-11-04 15:39 | Electrocardiogram Report ---
Test Reason : Blood Pressure : */* mmHG Vent. Rate : 55 BPM Atrial Rate : 55 BPM P-R Int : 162 ms QRS Dur : 112 ms QT Int : 464 ms P-R-T Axes : 58 7 -39 degrees QTcB Int : 443 ms Sinus bradycardia with occasional Premature ventricular complexes Possible Inferior infarct (cited on or before 27-Sep-2023) Possible Anterior infarct (cited on or before 04-Nov-2024) Abnormal ECG When compared with ECG of 04-Nov-2024 09:59, No significant change was found Confirmed by Gutierrez Costa ([id number]) on 11/04/2024 3:39:05 PM Referred By: REFERRED SELF Confirmed By: Gutierrez Costa
[2024-11-04] MEDS ORDERED: MAGNESIUM HYDROXIDE SUSP 30 ML UDC PO PRN (17:13)
[2024-11-04] MEDS ORDERED: POLYETHYLENE (MIRALAX) 17 GM PACK PO PRN (17:13)
[2024-11-04] MEDS ORDERED: NITROGLYCERIN SL 0.4 MG/TAB TAB SL PRN (17:13)
--- NOTE | 2024-11-04 18:02 | Communication Note ---
Date of Service: November 04, 2024 Third troponin level has trended up to 17,249.4 pg/ml. Patient feeling well without CP at this time. NPO after MN for cath tomorrow. If pt has recurrent discomfort would obtain EKG and start nitropaste. Alessandra Meyer DO
[2024-11-04 19:57] LABS: ANTI-Xa, UFH(UnfractionatedHep 0.51 IU/ml (0.3-0.7)
[2024-11-05] MEDS ORDERED: MoRPHine SULFATE 4 MG/ML 1 ML CARP\\VIAL IV PRN (01:48)
[2024-11-05] MEDS: NITROGLYCERIN SL 0.4 MG/TAB TAB SL STA (02:25)
[2024-11-05] MEDS: MoRPHine SULFATE 4 MG/ML 1 ML CARP\\VIAL ONE (02:26)
[2024-11-05 06:04] LABS: Hematocrit (blood only) 40.7 % (42.0-52.0); Hemoglobin 14.0 g/dl (14.0-18.0); Immature Granulocytes # (auto) 0.04 K/uL (0.01-0.20); Immature Granulocytes % (auto) 0.3 %; Mean Corpuscular Hemoglobin 31.4 pg (25.0-34.0); Mean Corpuscular Volume 91.3 fL (80.0-100.0); Platelet Count 240 K/uL (130-400); RDW Standard Deviation 45.8 fL (36.4-46.3); Red Blood Count 4.46 M/uL (4.70-6.10); White Blood Count 14.26 K/ul (4.8-10.8)
[2024-11-05 06:21] LABS: Alanine Aminotransferase 22.0 U/L (7-52); Albumin Globulin Ratio 1.5 (0.9-2); Alkaline Phosphatase 43.0 U/L (34-104); Anion Gap 6.0 (3-11); Bilirubin,Total 1.2 mg/dl (0.2-1.0); Blood Urea Nitrogen 16.0 mg/dl (6-23); Calcium 8.2 mg/dl (8.6-10.3); Carbon Dioxide 31.0 mmol/L (21-32); Chloride 105.0 mmol/L (98-107); Cholesterol 150.0 mg/dl (0-200); Creatinine Clr Calc Pharmacy 185.2 ml/min; Globulin 2.4 gm/dl (2.5-4.0); Glucose 102.0 mg/dl (70-99(Fasting)); HDL Cholesterol 34.0 mg/dl; Magnesium 2.2 mg/dl (1.7-2.4); Potassium 3.2 mmol/L (3.5-5.1); Sodium 142.0 mmol/L (136-145); Total Protein 6.1 gm/dl (6.0-8.3); Triglycerides 121.0 mg/dl (0-150)
[2024-11-05 06:30] LABS: ANTI-Xa, UFH(UnfractionatedHep 0.35 IU/ml (0.3-0.7)
[2024-11-05] MEDS: POTASSIUM CHLORIDE CRTAB 20 MEQ TABCR PO STA (06:42)
[2024-11-05 07:20] LABS: Cholesterol 148.0 mg/dl (0-200); HDL Cholesterol 35.0 mg/dl; Triglycerides 122.0 mg/dl (0-150)
[2024-11-05] MEDS: Heparin IV Adult Wt-Based Standard w/ INITIAL Bolus Protocol IV STA (07:25)
[2024-11-05] MEDS: ASPIRIN 81 MG ECTAB PO SCH (07:35)
[2024-11-05] MEDS: POTASSIUM CHLORIDE / WTR 10 MEQ/100 ML PLCT IV SCH (07:35)
[2024-11-05] MEDS: ATORVASTATIN 40 MG TAB PO SCH (07:35)
[2024-11-05 07:36] LABS: Hemoglobin A1C 6.0 % (4.5-5.6)
--- NOTE | 2024-11-05 08:33 | Cardiology Progress Note ---
Date of Service November 05, 2024 Assessment & Plan (1) Chest pain: (2) NSTEMI (non-ST elevated myocardial infarction): (3) Hypokalemia: (4) Ascending aorta enlargement: (5) Esophageal cancer: Plan Assessment: 54 year old male with history of esophageal cancer s/p esophagec brody/chemo and radiation, and mets to the lungs that presents with several weeks of crescendo chest pain that has gotten progressively worse over past several weeks with a significant event 2 night ago requiring SL NTG. EKG with suggestion of prior inferior infarct and possible anterior event. Troponin with modest elevation. Cardiology consulted for further evaluation and recommendations. 1. Chest pain 2. NSTEMI -Patient is NPO in preparation for cardiac catheterization today. He is chest pain free at this time and remains on heparin gtt -Hx of several weeks of chest pain described in a crescendo pattern, multiple risk factors and family history of CAD -Significant troponin elevation -Labs reviewed, serum K 3.2, currently receiving IV supplementation. Moving forward would recommend that patient be placed on a PO supplementation in liquid form. Patient has issues with swallowing large pills. 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 Mild AI, aortic root moderately enlarged with diameter of 4.8cm. -will refrain from adding beta suze therapy at this time s/t bradycardia -Continue ASA 81mg, and Atorvastatin -Further recommendations pending cardiac catheterization. 3. Hypokalemia -Currently receiving supplementation. If patient would require additional or maintenance PO supplementation, please make in liquid form due to difficulty swallowing large pills 4. Ascending aorta enlargement -History of echo in 2022 showing ascending aorta enlargement of 4.3cm, repeat echo yesterday now shows measurements of 4.8cm 5. Esophageal cancer -Prior esophagectomy with chemo and radiation, recent dx of lung mets confirmed by recent CT guided percutaneous RLL lung lesion biopsy -Ongoing management per primary team and Heme/Onc. Follows with Dr. Schofield. Case has been discussed with Dr. Meyer. Further recommendations regarding plan of care as per his assessment. I spent a total of 35 minutes on the date of service in preparation, delivery, documentation of the care provided to the patient excluding any time spent in the performance of separately billed services. ISIDRA Eid [facility] Admission and Anticipated Discharge Date Admission Date: November 04, 2024 Supervising Physician Co-Signing Physician Notes Attending attestation: Case reviewed with the advanced practitioner. I have personally performed a history and physical examination on the patient. I have reviewed the advanced practitioner's documentation on the date of service referenced in note, and I agree with, and take responsibility for the plan of care. Subjective: Patient feeling well during my assessment this morning in room 221. Notes 2 brief episodes of chest pressure last evening. Heparin infusing without complication. Denies bleeding with bowel movements. Exam: CV: regular rhythm, No murmurs, no edema Impression/ Plan: NSTEMI , HS troponin Stage IV esophageal CA, two lung nodules 1.5 cm, recent CT guided biopsy September , h/o esophagectomy 01/2023 4.8 cm aortic root, 4.3 cm ascending aorta, mild aortic regurgitation Newly recognized moderate LV systolic dysfunction, likely ischemic CM * ASA 81 mg daily, heparin gtt, atorvastatin. * No metoprolol as HR in 50s to 60s at baseline * Plan for cardiac catheterization today I spent a total of 30 minutes coordinating, documenting, and providing care for this patient excluding time spent in the performance of separately billed services or time spent by another provider. Brent Meyer DO Subjective 11/05/2024: Patient seen and examined in follow up today. Feeling fair. Patient endorsed some very mild chest pressure overnight which resolved quickly without intervention. He continues on a heparin gtt. H/H stable. Denies any shortness of breath, no PND, pre-syncope, syncope or edema Labs, vitals, diagnostics, telemetry and documentation reviewed. Telemetry reviewed showing SB with occasional PVC's rates 52-58bpm. No acute events overnight Serum K 3.2, currently receiving IV supplementation. Review of Systems Review of Systems: All systems reviewed & are unremarkable except as noted in HPI & below Physical Exam Constitutional: well developed and well nourished; no acute distress and not ill appearing Neck: normal visual inspection and trachea midline Respiratory: normal respiratory effort, lungs clear to auscultation no cough Auscultation: no crackles, no rales, no rhonchi and no wheezes Cardiovascular: RRR, no murmur, no edema (occasional PVCs) Heart Sounds: normal S1 and normal S2; no murmur Vessels: dorsalis pedis pulses present; no JVD Extremities: no edema Skin: no rashes, warm and dry Psychiatric: A+Ox3, euthymic affect Results & Data Vital Signs (Past 12 Hours) Vital Signs Temp Pulse Pulse Resp BP Pulse Ox O2 Del Method 11/05/24 07:23 36.7 C 53 L 20 115/74 95 Room Air 11/05/24 03:46 36.6 C 50 L 20 117/74 97 Room Air 11/04/24 23:33 36.8 C 50 L 20 125/71 96 Room Air 11/04/24 21:58 58 L Laboratory Results Cardiac Enzymes 11/04/24 11/04/24 11/04/24 Range/Units 10:07 12:09 16:13 AST 65 H (13-39) U/L Troponin I High Sens 8464.0 H* 7869.0 H* 81136.4 H* D (0-20) pg/ml B-Natriuretic Peptide 521 H (0-100) pg/ml 11/04/24 11/05/24 11/05/24 Range/Units 19:12 00:43 05:23 AST 45 H (13-39) U/L Troponin I High Sens 46119.0 H* 58346.0 H* D 9498.0 H* (0-20) pg/ml B-Natriuretic Peptide (0-100) pg/ml 11/05/24 Range/Units 06:20 AST (13-39) U/L Troponin I High Sens 8421.7 H* (0-20) pg/ml B-Natriuretic Peptide (0-100) pg/ml Coagulation 11/04/24 Range/Units 10:07 PT 11.1 (9.0-12.0) Seconds APTT 25 (21-31) Seconds B-Natriuretic Peptide 521 H (0-100) pg/ml Lipids 11/05/24 11/05/24 Range/Units 05:23 06:20 Triglycerides 121 122 (0-150) mg/dl Cholesterol 150 148 (0-200) mg/dl HDL Cholesterol 34 35 mg/dl Cholesterol/HDL Ratio 4.4 4.2 (0-5) CBC 11/04/24 11/05/24 Range/Units 10:07 05:23 WBC 22.32 H 14.26 H (4.8-10.8) K/ul RBC 4.74 4.46 L (4.70-6.10) M/uL Hgb 14.8 14.0 (14.0-18.0) g/dl Hct 42.5 40.7 L (42.0-52.0) % Plt Count 270 240 (130-400) K/uL Neut # (Auto) 18.41 H 9.51 H (1.40-6.50) K/uL Lymph # (Auto) 1.63 2.71 (1.20-3.40) K/uL [place] # (Auto) 2.12 H 1.90 H (0.11-0.59) K/uL Eos # (Auto) 0.00 0.03 (0.00-0.50) K/uL Baso # (Auto) 0.03 0.07 (0.00-0.20) K/uL Comprehensive Metabolic Panel 11/04/24 11/05/24 Range/Units 10:07 05:23 Sodium 138 142 (136-145) mmol/L Potassium 3.3 L 3.2 L (3.5-5.1) mmol/L Chloride 102 105 (98-107) mmol/L Carbon Dioxide 28 31 (21-32) mmol/L BUN 19 16 (6-23) mg/dl Creatinine 0.57 L 0.56 L (0.6-1.4) mg/dl Glucose 152 H 102 H (70-99(Fasting)) mg/dl Calcium 8.8 8.2 L (8.6-10.3) mg/dl AST 65 H 45 H (13-39) U/L ALT 26 22 (7-52) U/L Alkaline Phosphatase 52 43 (34-104) U/L Total Protein 7.0 6.1 (6.0-8.3) gm/dl Albumin 4.4 3.7 (3.4-5.0) gm/dl Intake and Output 11/04/24 11/05/24 11/05/24 22:59 06:59 14:59 Intake Total 215.967 / 1300.000 284.033 / 1300.000 189.9 / 189.9 Balance 215.967 / 1300.000 284.033 / 1300.000 189.9 / 189.9 Intake: IV 215.967 / 1300.000 284.033 / 1300.000 189.9 / 189.9 Heparin 59283 Unit/500 ml D5w 215.967 / 500.000 284.033 / 500.000 89.9 / 89.9 25,000 units In 500 ml @ 1,550 UNITS/HR 31 mls/hr IV .Q16H8M [facility] Rx#:[id number] Potassium Chloride / Wtr 10 meq 100 / 100 In 100 ml @ 100 mls/hr IV Q1H [facility] Rx#:[id number] Other: # Unmeasured Voids 2 Weight 100.2 kg 99.2 kg Weight Measurement Method Built in Bedscale Built in Bedscale Coding [place] [address] SUB INP/OBS CARE 3/50MIN Patient Type Established Diagnoses Chest pain, unspecified type R07.9 Chest pain type: unspecified NSTEMI (non-ST elevated myocardial infarction) I21.4 Hypokalemia E87.6 Ascending aorta enlargement I77.89 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 C15.4 Malignant neoplasm of esophagus location: middle third Time Spent (min) 55 Comment 35 minutes by ISIDRA Chan, [address] Meyer (1) Chest pain Chest pain type: unspecified Qualified Code(s): R07.9 - Chest pain, unspecified (5) Esophageal cancer Malignant neoplasm of esophagus location: middle third Qualified Code(s): C15.4 - 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
[2024-11-05] MEDS: POTASSIUM CHLORIDE CRTAB 20 MEQ TABCR PO ONE (09:58)
--- NOTE | 2024-11-05 14:30 | Pre Anesthesia Assessment ---
Date of Service November 05, 2024 Pre Sedation Assessment Vital Signs Temp Pulse Pulse Resp BP BP Pulse Ox 11/05/24 12:01 53 L 14 128/81 93 11/05/24 11:10 98.4 F 51 L 21 116/73 97 11/05/24 07:23 98.1 F 53 L 20 115/74 95 11/05/24 03:46 97.9 F 50 L 20 117/74 97 11/04/24 23:33 98.2 F 50 L 20 125/71 96 11/04/24 21:58 58 L 11/04/24 19:54 98.6 F 52 L 18 129/80 96 11/04/24 19:15 11/04/24 18:21 55 L 11/04/24 17:59 11/04/24 17:27 97.0 F L 54 L 130/80 11/04/24 17:18 11/04/24 17:00 57 L 20 111/75 96 11/04/24 16:00 54 L 16 123/75 95 11/04/24 15:00 56 L 17 119/71 97 O2 Del Method 11/05/24 12:01 Room Air 11/05/24 11:10 Room Air 11/05/24 07:23 Room Air 11/05/24 03:46 Room Air 11/04/24 23:33 Room Air 11/04/24 21:58 11/04/24 19:54 Room Air 11/04/24 19:15 Room Air 11/04/24 18:21 11/04/24 17:59 Room Air 11/04/24 17:27 11/04/24 17:18 Room Air 11/04/24 17:00 11/04/24 16:00 11/04/24 15:00 Cardiovascular + regular rate Respiratory + respiratory effort normal Pre-Sedation Airway Assessment Hx Sleep Apnea: No Short, Thick Neck: No Thyromental Distance: > or= 3.5 Finger Breadths Oral Cavity: + Dental Abnormalities Mallampati Class: III ASA: ASA3 Procedure Planning Contraindications for Sedation: none Current Medications Reviewed: Yes Notes The planned sedation has been discussed with the patient. Informed Consent was obtained. I have identified the patient, determined the appropriateness of sedation and have assessed the patient immediately prior to the procedure. All medicine(s) and interventions are by my order.
[2024-11-05] MEDS: HEPARIN (PORCINE) 1000 UNIT/ML 10 ML (CATH LAB USE ONLY) ONE (15:22)
[2024-11-05] MEDS: IODIXANOL (VISIPAQUE) 320 MG/ML 100ML IV ONE (15:22)
[2024-11-05] MEDS: MIDAZOLAM HCL 1 MG/ML 2ML VIAL ONE (15:22)
[2024-11-05] MEDS: MoRPHine SULFATE 10 MG/ML CARP/VIAL ONE (15:23)
[2024-11-05] MEDS: NITROGLYCERIN/D5W 100MCG/ML 20ML SYR ONE (15:23)
[2024-11-05] MEDS: niCARdipine 2,000 MCG/20 ML SYR ONE (15:23)
--- NOTE | 2024-11-05 15:36 | Post Anesthesia Assessment ---
Date of Service November 05, 2024 Post Sedation Assessment Vital Signs Temp Pulse Pulse Resp BP BP Pulse Ox 11/05/24 12:01 53 L 14 128/81 93 11/05/24 11:10 98.4 F 51 L 21 116/73 97 11/05/24 07:23 98.1 F 53 L 20 115/74 95 11/05/24 03:46 97.9 F 50 L 20 117/74 97 11/04/24 23:33 98.2 F 50 L 20 125/71 96 11/04/24 21:58 58 L 11/04/24 19:54 98.6 F 52 L 18 129/80 96 11/04/24 19:15 11/04/24 18:21 55 L 11/04/24 17:59 11/04/24 17:27 97.0 F L 54 L 130/80 11/04/24 17:18 11/04/24 17:00 57 L 20 111/75 96 11/04/24 16:00 54 L 16 123/75 95 O2 Del Method 11/05/24 12:01 Room Air 11/05/24 11:10 Room Air 11/05/24 07:23 Room Air 11/05/24 03:46 Room Air 11/04/24 23:33 Room Air 11/04/24 21:58 11/04/24 19:54 Room Air 11/04/24 19:15 Room Air 11/04/24 18:21 11/04/24 17:59 Room Air 11/04/24 17:27 11/04/24 17:18 Room Air 11/04/24 17:00 11/04/24 16:00 Recovery Score Activity: Moves 4 extremities Respiration: Deep Breath/Cough Circulation: +/-20% PreAnes Value Consciousness: Fully Awake Oxygen Saturation: O2 needed for >90% Discharge Sedation Level of Care: Fast Track Phase II
[2024-11-05] MEDS: OPTIRAY 350 ONE (16:23)
--- NOTE | 2024-11-05 16:28 | Hospitalist Progress Note ---
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: Plan Patient 54-year-old gentleman presents with non-STEMI and cardiac cath evidence of coronary artery disease of the RCA and reduced ejection fraction Continue postcardiac cath care, continue IV heparin for 24 hours postprocedure Work towards goal-directed medical therapy for decreased chest infection, patient cannot tolerate beta-suze due to heart rate Start Jardiance for prediabetes and heart failure Imdur for angina treatment Replace potassium Monitor electrolytes and renal function Continue outpatient medications for his esophageal cancer/reflux Admission and Anticipated Discharge Date Admission Date: November 04, 2024 Subjective Patient seen postcardiac cath. Doing well. Denies any chest pain. No shortness of breath. Reports that he has a chronic issue with maintaining adequate potassium levels Physical Exam Physical Exam: Constitutional: Alert, nontoxic HEENT: Mucous membranes moist. Lungs: Clear to auscultation, decreased, no wheezes rales or rhonchi CV: S1-S2, regular, no significant murmur Abdomen: Soft, nontender, nondistended Extremities: No significant edema in lower extremities, compression band on right wrist postcardiac cath Neuro: No focal deficits Psych: Cooperative, normal mood Results & Data Results & Data Vital Signs (Past 12 Hours) Vital Signs Temp Pulse Resp BP Pulse Ox O2 Del Method 11/05/24 15:45 55 L 14 131/63 93 Room Air 11/05/24 15:30 55 L 14 112/75 93 Room Air 11/05/24 12:01 53 L 14 128/81 93 Room Air 11/05/24 11:10 36.9 C 51 L 21 116/73 97 Room Air 11/05/24 07:23 36.7 C 53 L 20 115/74 95 Room Air Diagnostic Findings Reviewed imaging, laboratory and diagnostic studies. Pertinent findings as below. WBCs 14.2 Hemoglobin 14.0 Potassium 3.2 Creatinine 0.56 Hemoglobin A1c 6.0% Troponins reviewed, trending down Lipid profile reviewed Echocardiogram report reviewed, ejection fraction 35 to 40% with left ventricular hypokinesis of the basal and mid inferior wall and basal posterior wall, aortic root dilatation 4.8 cm Reviewed cardiac cath images with Dr. Meyer
[2024-11-05] MEDS: ISOSORBIDE MONO EXTENDED REL 30 MG TABCR PO SCH (16:58)
--- NOTE | 2024-11-05 17:29 | Communication Note ---
Date of Service: November 05, 2024 Cardiac catheterization films reviewed and discussed with Dr. Fuentes of interventional cardiology. Patient found to have subtotal occlusion of the mid right coronary artery, with chronic findings of [id number]-md-tzply collaterals to the right PDA branch of the right coronary artery. Percutaneous revascularization felt to be technically difficult and potentially would place patient at high risk from a preprocedure standpoint, as well as it would commit him to dual antiplatelet therapy in a patient with ongoing issues of metastatic adenocarcinoma of the esophagus. Plan: Medical therapy. Aspirin 81 mg daily Baseline heart rate is in the 50s to 60s therefore no beta-suze Add isosorbide mononitrate 30 mg by mouth daily Resume unfractionated heparin infusion after the radial artery band is removed, and plan for another 24 hours until afternoon of 11/06/2024. Continue atorvastatin 40 mg daily. Start guideline directed medical therapy for left ventricular systolic dysfunction with plans to initiate Jardiance 10 mg by mouth daily tomorrow. 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 He will likely need an excuse for a week of and then to perhaps return with light duty as his usual chores include lifting boxes of [address] Ramírez rounding on 11/06/24.
[2024-11-05] MEDS: POTASSIUM CHLORIDE 20 MEQ/15 ML UDC PO SCH (20:30)
[2024-11-05 23:52] LABS: ANTI-Xa, UFH(UnfractionatedHep 0.23 IU/ml (0.3-0.7)
--- NOTE | 2024-11-06 00:14 | Cardiac Catheterization ---
[facility] Data: Wedger Machine Cardiac Status Clinical evaluation leading to the procedure CAD Presenation: Non STEMI Anginal Classification: CCS IV Diagnostic Physicians Name: Yaya Fuentes MD Closure Device Recommendations: Medical Therapy and/or Counseling Cardiac Cath Procedure Full Procedure Date November 05, 2024 Pre-Procedure Diagnosis Pre-Procedure Diagnosis: Non STEMI AUC Score AUC Score: 8 Post-Procedure Diagnosis Post-Procedure Diagnosis: Severe CAD and Normal Intracardiac Pressures Procedure(s) Performed Procedure(s) Performed: Coronary Angiography and Left Heart Cath Sorting Grapple Operator Yaya Fuentes MD Fish Net Stringer(s) Arlette Estimated Blood Loss Estimated Blood Loss: 10 Medication(s) Medication(s): Fentanyl, Heparin, Lidocaine 1%, Nicardipine, Nitroglycerin and Versed Summary of Findings Indication: NSTEMI Access: 6 Fr slender right radial artery Catheters: [place], diagnostic JR4 Findings: LM -large caliber, ectatic at trifurcation, no significant disease LAD -large caliber, no significant disease and wraps around apex. Medium D1 with proximal luminal irregularities. Ramusmedium caliber, luminal irregularities. Circumflex -large caliber proximally, mid segment with 30% disease. Distal vessel and small left OM's without significant disease. RCA -dominant, large caliber with FEMI I-II flow. Distal vessel with acute on chronic occlusion with thrombus. Right PLB's, PDA fills retrograde via rpwg-mx-parku collaterals. LVEDP -12 Arterial Closure: TR band Summary: 1. Severe single coronary artery disease -100% acute on chronic distal RCA occlusion with jjsz-qv-ipahq collaterals. 2. Normal intracardiac filling pressure Recommendations: RCA reasonably collateralized and with patient's risk of future bleeding and potential need for additional procedures recommend medical management of RCA disease. Continue heparin infusion overnight Maximize antianginal therapy long-term Continued ASCVD risk factor modification per Dr. Meyer Hemodynamics Rest Ao:: 114/77/94 Final Ao: 113/73/92 LV: 118/12 Recommendations Recommendations: Medical Therapy and/or Counseling Radiation Exposure (mGy) 1581 Contrast (mls) 50 Anesthesia Moderate 8722-9076 Procedural Complication(s) None Disposition PCU I attest to the content of the Intraoperative Record and any orders documented therein. Any exceptions are noted below. [employer] Card Cath Procedure Codes Cardiac Catheterization Procedure 1: Cardiovascular Cath Procedures: 32451 Coronaries and LHC (+/-LV) Moderate Sedation Procedure 1: Sedation/Anesthesia: 54562 Mod Sedation by the same physician;Init15 Min Child Age 5 & Up PG Care Time/CCT Total # of Minutes Spent Total Time Spent with Patient: Total time spent is greater than 50% in coordination of care (as documented) at patient's floor/unit and/or counseling patient:
[2024-11-06] MEDS: ACETAMINOPHEN 325 MG TAB PO PRN (05:50)
[2024-11-06 05:59] LABS: Hematocrit (blood only) 41.3 % (42.0-52.0); Hemoglobin 14.1 g/dl (14.0-18.0); Mean Corpuscular Hemoglobin 31.2 pg (25.0-34.0); Mean Corpuscular Volume 91.4 fL (80.0-100.0); Platelet Count 245 K/uL (130-400); RDW Standard Deviation 45.1 fL (36.4-46.3); Red Blood Count 4.52 M/uL (4.70-6.10); White Blood Count 12.03 K/ul (4.8-10.8)
[2024-11-06 06:21] LABS: ANTI-Xa, UFH(UnfractionatedHep 0.30 IU/ml (0.3-0.7); Anion Gap 6.0 (3-11); Blood Urea Nitrogen 18.0 mg/dl (6-23); Calcium 8.1 mg/dl (8.6-10.3); Carbon Dioxide 28.0 mmol/L (21-32); Chloride 106.0 mmol/L (98-107); Creatinine Clr Calc Pharmacy 157.1 ml/min; Glucose 119.0 mg/dl (70-99(Fasting)); Magnesium 2.2 mg/dl (1.7-2.4); Potassium 3.5 mmol/L (3.5-5.1); Sodium 140.0 mmol/L (136-145)
[2024-11-06] MEDS: EMPAGLIFLOZIN 10 MG TAB PO SCH (09:32)
--- NOTE | 2024-11-06 09:32 | Cardiology Progress Note ---
Date of Service November 06, 2024 Assessment & Plan (1) Chest pain: (2) NSTEMI (non-ST elevated myocardial infarction): (3) Hypokalemia: (4) Ascending aorta enlargement: (5) Esophageal cancer: Plan Assessment: 54 year old male with history of esophageal cancer s/p esophagectomy/chemo and radiation, and mets to the lungs that presents with several weeks of crescendo chest pain that has gotten progressively worse over past several weeks with a significant event 2 night ago requiring SL NTG. EKG with suggestion of prior inferior infarct and possible anterior event. Troponin with modest elevation. Cardiology consulted for further evaluation and recommendations. Plan: 11/06/2024: 1. Chest pain/NSTEMI -Patient is stable from a cardiac perspective. Underwent cardiac cath yesterday with findings as follows: Summary: . Severe single coronary artery disease -100% acute on chronic distal RCA occlusion with [id number]-yy-imjpf collaterals. 2. Normal intracardiac filling pressure -May discontinue heparin gtt at noon today. -BP stable -Heart rate currently in the 50's--will not start beta suze therapy at this time. -Continue ASA 81mg PO QD, Atorvastatin 40mg PO QD, Imdur 30mg PO QD, Potassium Chloride ELIXIR, and Jardiance 10mg QD -Recommend that patient have labs in one week post discharge (BMP) -Discussed with patient about obtaining a home BP cuff and reporting trends to our office. -When appropriate for discharge, patient will need to follow up with cardiology in 3-4 weeks. Office will contact patient. Will continue to adjust maximize GDMT outpatient as blood pressure tolerates. 3. Hypokalemia -Currently receiving supplementation. If patient would require additional or maintenance PO supplementation, please make in liquid form due to difficulty swallowing large pills 4. Ascending aorta enlargement -History of echo in 2022 showing ascending aorta enlargement of 4.3cm, repeat echo yesterday now shows measurements of 4.8cm 5. Esophageal cancer -Prior esophagectomy with chemo and radiation, recent dx of lung mets confirmed by recent CT guided percutaneous RLL lung lesion biopsy -Ongoing management per primary team and Heme/Onc. Follows with Dr. Schofield. Case has been discussed with Dr. Ramírez Further recommendations regarding plan of care as per his assessment. I spent a total of 30 minutes on the date of service in preparation, delivery, documentation of the care provided to the patient excluding any time spent in the performance of separately billed services. ISIDRA Eid [facility] Admission and Anticipated Discharge Date Admission Date: November 04, 2024 Supervising Physician Co-Signing Physician Notes I have personally performed a history and physical examination on the patient. I have reviewed the advance practitioner's documentation, and I agree with, and take responsibility for the plan of care. 54 male feeling well this morning. Reports a transient episode of sharp chest discomfort earlier today. IV heparin infusing. Cardiac catheterization performed yesterday demonstrating 100% acute on chronic distal RCA occlusion with skub-jt-jnwms collaterals. Medical management, antianginal therapy recommended. Continue aspirin, isosorbide, atorvastatin, and Jardiance. Unable to add beta-suze at this time due to resting bradycardia. CT chest demonstrating mild dilatation of ascending aorta, 4.3 cm. Repeat imaging in 1 year. Cardiology follow-up in 2 to 4 weeks postdischarge. I spent a total of 30 minutes on the date of service in preparation, delivery, and documentation of the care provided to this patient, excluding any time spent in the performance of separately billed services. Chu Ramírez DO [facility] Subjective 11/06/2024: Patient seen and examined in follow up today. Feeling well. Offers no acute complaints. Patient endorses very brief episode of chest pressure while ambulating to the restroom overnight, responded quickly with no intervention. Labs, vitals, diagnostics, telemetry and documentation reviewed. Telemetry reviewed showing SR with occ. PVC's rates 70's. currently on heparin gtt. Review of Systems Review of Systems: All systems reviewed & are unremarkable except as noted in HPI & below Physical Exam Constitutional: well developed and well nourished; no acute distress and not ill appearing Neck: normal visual inspection and trachea midline Respiratory: normal respiratory effort, lungs clear to auscultation no cough Auscultation: no crackles, no rales, no rhonchi and no wheezes Cardiovascular: RRR, no murmur, no edema (occasional PVCs) Heart Sounds: normal S1 and normal S2; no murmur Vessels: dorsalis pedis pulses present; no JVD Extremities: no edema Skin: no rashes, warm and dry Psychiatric: A+Ox3, euthymic affect Results & Data Vital Signs (Past 12 Hours) Vital Signs Temp Pulse Pulse Resp BP Pulse Ox O2 Del Method 11/06/24 08:37 36.4 C L 65 18 109/65 95 Room Air 11/06/24 06:00 36.5 C 59 L 16 115/72 96 Room Air 11/06/24 03:00 37.1 C 62 18 103/61 95 Room Air 11/05/24 22:49 36.9 C 63 18 100/58 L 93 Room Air 11/05/24 22:06 63 Laboratory Results CBC 11/06/24 Range/Units 05:15 WBC 12.03 H (4.8-10.8) K/ul RBC 4.52 L (4.70-6.10) M/uL Hgb 14.1 (14.0-18.0) g/dl Hct 41.3 L (42.0-52.0) % Plt Count 245 (130-400) K/uL Comprehensive Metabolic Panel 11/06/24 Range/Units 05:15 Sodium 140 (136-145) mmol/L Potassium 3.5 (3.5-5.1) mmol/L Chloride 106 (98-107) mmol/L Carbon Dioxide 28 (21-32) mmol/L BUN 18 (6-23) mg/dl Creatinine 0.66 (0.6-1.4) mg/dl Glucose 119 H (70-99(Fasting)) mg/dl Calcium 8.1 L (8.6-10.3) mg/dl Intake and Output 11/05/24 11/06/24 11/06/24 22:59 06:59 14:59 Intake Total 196.617 / 1175.850 556.033 / 1175.850 228.8 / 228.8 Balance 196.617 / 1175.850 556.033 / 1175.850 228.8 / 228.8 Intake: IV 196.617 / 775.850 156.033 / 775.850 228.8 / 228.8 Heparin 98274 Unit/500 ml D5w 96.617 / 475.850 156.033 / 475.850 228.8 / 228.8 25,000 units In 500 ml @ 1,550 UNITS/HR 31 mls/hr IV .Q16H8M [facility] Rx#:[id number] Potassium Chloride / Wtr 10 meq 100 / 300 In 100 ml @ 100 mls/hr IV Q1H [facility] Rx#:[id number] Oral 400 / 400 Other: Other Intake Source npo Weight 101.1 kg Weight Measurement Method Built in [facility] PG Care Time/CCT Total # of Minutes Spent Total Time Spent with Patient: Total time spent is greater than 50% in coordination of care (as documented) at patient's floor/unit and/or counseling patient: [place] [address] SUB INP/OBS CARE 3/50MIN Patient Type Established Diagnoses Chest pain, unspecified type R07.9 NSTEMI (non-ST elevated myocardial infarction) I21.4 Hypokalemia E87.6 Ascending aorta enlargement I77.89 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
--- NOTE | 2024-11-06 11:23 | Discharge Summary ---
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 Had been seen by his PCP and recommended some as needed nitroglycerin. Patient presented to the emergency room after having recurrent chest pain requiring nitroglycerin with some relief. In the emergency room troponins were consistent with non-STEMI. Patient was admitted to the hospital, he was started on IV heparin. Cardiology consultation was obtained. He was evaluated by cardiology who recommended ongoing heparin and nitroglycerin use as needed for chest pain. He was prepped for cardiac catheterization. Patient underwent cardiac catheterization which showed severe single right coronary artery disease with significant collaterals. There was no reasonable course for intervention or stenting. The patient was kept on heparin for 24 hours postcardiac cath. He was started on Imdur for anginal control. Started on Jardiance for decreased ejection fraction that was noted on echocardiogram. He was also started on aspirin and statin. His electrolytes were replaced and potassium improved on the day of discharge. Patient had no further significant anginal symptoms. Vital signs are stable. Tolerate the new medications. He will be discharged home to follow-up with cardiology and his outpatient PCP. Notes For Next Care Provider Continue to monitor prediabetes, may need additional interventions moving forward Consider checking basic metabolic profile in 10 to 14 days Follow-up with cardiology as coordinated Work excuse given until November 16, 2024 Medication Changes From Visit Imdur Aspirin Lipitor Jardiance Potassium Admission HPI Per Admitting Provider Patient is a 54-year-old male with past medical history significant for lower esophageal adenocarcinoma s/p neoadjuvant chemotherapy plus radiation therapy and esophagectomy with bilateral lower lobe lung metastases, HTN and fusiform enlargement of the ascending thoracic aorta who presented to the ED with complaint of intermittent chest pain x past several weeks. History obtained from the patient, discussion with ED provider and associated chart review. Admits to intermittent chest pain for the past several weeks. Pain occurs both at rest and with exertion. Pain initially started primarily in the left arm, but over the past several weeks, it has progressed in intensity, frequency and now it radiates across the chest wall into the right shoulder and around the back. Experiencing some paresthesias in his left arm at times with the pain. He also typically experiences SOB, diaphoresis and nausea with these chest pain episodes. Mentions he has vomited a few times during these events as well. Patient had seen his PCP on 11/02/2024, for these complaints. Had EKG done at that time which revealed sinus bradycardia without ischemic changes. It was recommended that he come to the ED for further evaluation at that time however he refused. He was prescribed SL nitroglycerin, though, which he did use 1 time Saturday evening and it seemed to help his pain subside at the time. However, his pain returned, which prompted him to come to the ED today. History of HTN, prediabetes and tobacco use. Stopped smoking after his esophageal cancer diagnosis in 2022. Hgb A1c 5.9% 2yr ago. Recreational marijuana use. No alcohol use. Admits to somewhat poor po intake for the past few days. Feels he has no appetite due to recent intensity and increased frequency of his chest pain. No recorded fevers, but feels he has been "running hot." Tolerates a soft bite- sized diet. Denies any lula aspiration events. Admission Exam Per Admitting Provider See H&P Discharge Exam Constitutional: Alert HEENT: Mucous membranes moist. Lungs: Clear to auscultation, decreased, no wheezes rales or rhonchi CV: S1-S2, regular Abdomen: Soft, nontender, nondistended Extremities: No significant edema Neuro: No focal deficits Psych: Cooperative, normal mood Updated Medication List Medication Instructions Recorded Confirmed Type acetaminophen 500 mg tablet 500 mg PO Q6H PRN Pain 11/07/22 11/04/24 History (Tylenol Extra Strength) aspirin 81 mg tablet,delayed 81 mg PO DAILY #360 tabs 11/06/24 Rx release atorvastatin 40 mg tablet 40 mg PO QAM #30 tabs 11/06/24 Rx empagliflozin 10 mg tablet 10 mg PO DAILY #30 tabs 11/06/24 Rx (Jardiance) isosorbide mononitrate 30 mg 30 mg PO QAM #30 tabs 11/06/24 Rx tablet,extended release 24 hr potassium chloride 20 mEq oral 40 meq PO DAILY #60 ea 11/06/24 Rx packet Hospital Stay Data Consultations 11/04/24 12:08 ED Decision to Admit Stat 11/04/24 13:44 Consult Cardiology Routine Procedures Performed Operation Date: 11/05/24 12:30 Actual Procedures p Cineradiography w/Routine Exam - Yaya Fuentes MD p Cath, Left with Cors and Vent - Yaya Fuentes MD Diagnostic Imagining Performed 11/04/24 10:06 CT angio chest PE protocol Stat 11/05/24 14:04 CL Cath Imgs for PACS use only Routine Reviewed imaging, laboratory and diagnostic studies. Pertinent findings as below. Cardiac catheterization revealed 100% occlusion of the right coronary artery with collaterals. Refer to the full report for details Echocardiogram revealed diffuse hypokinesis, ejection fraction 30 to 40% with moderately reduced LV function. Enlarged aortic root at 4.8 cm. I refer to full report for details WBCs 12.0 Hemoglobin 14.1 Potassium 3.5, improved Creatinine 0.66 Hemoglobin A1c 6.0% Troponin initially 8464, peaked at 18,406, decreased to 8421 Triglycerides 122 Cholesterol 148 LDL 89 HDL 35 Procalcitonin less than 0.02 Pending Results Patient Have Any Pending Studies at Discharge: No Discharge Instructions Given to Patient (Per Discharging Provider) It is okay to resume your radiation treatments. It is okay to proceed with your anticipated endoscopy in November. Follow-up with your outpatient providers as scheduled Blood testing shows that you have prediabetes/early diabetes continue to discuss and monitor this with your PCP. We did start a medicine that will help with this as well as with your heart Total Time Total Time Spent Total Time Spent (In Minutes): 38
--- NOTE | 2024-11-07 05:40 | Electrocardiogram Report ---
Test Reason : Blood Pressure : */* mmHG Vent. Rate : 59 BPM Atrial Rate : 59 BPM P-R Int : 156 ms QRS Dur : 106 ms QT Int : 504 ms P-R-T Axes : 45 2 -42 degrees QTcB Int : 500 ms Sinus bradycardia with occasional Premature ventricular complexes T wave abnormality, consider inferior ischemia Prolonged QT Abnormal ECG When compared with ECG of 04-Nov-2024 10:55, No significant change was found Confirmed by Sriram Hernandez ([id number]) on 11/07/2024 5:39:55 AM Referred By: REFERRED SELF Confirmed By: Sriram Hernandez
--- NOTE | 2024-11-07 05:41 | Electrocardiogram Report ---
Test Reason : Blood Pressure : */* mmHG Vent. Rate : 53 BPM Atrial Rate : 53 BPM P-R Int : 152 ms QRS Dur : 106 ms QT Int : 536 ms P-R-T Axes : 45 -3 -47 degrees QTcB Int : 504 ms Sinus bradycardia with occasional Premature ventricular complexes Inferior infarct , age undetermined Prolonged QT Abnormal ECG When compared with ECG of 04-Nov-2024 15:42, Inferior infarct is now Present Confirmed by Sriram Hernandez ([id number]) on 11/07/2024 5:40:56 AM Referred By: REFERRED SELF Confirmed By: Sriram Hernandez
--- NOTE | 2024-11-07 05:42 | Electrocardiogram Report ---
Test Reason : Blood Pressure : */* mmHG Vent. Rate : 58 BPM Atrial Rate : 58 BPM P-R Int : 160 ms QRS Dur : 110 ms QT Int : 484 ms P-R-T Axes : 21 -10 -67 degrees QTcB Int : 475 ms Sinus bradycardia with sinus arrhythmia Possible Inferior infarct (cited on or before 05-Nov-2024) T wave abnormality, consider inferolateral ischemia Abnormal ECG When compared with ECG of 05-Nov-2024 01:39, Premature ventricular complexes are no longer Present Inverted T waves have replaced nonspecific T wave abnormality in Lateral leads Confirmed by Sriram Hernandez ([id number]) on 11/07/2024 5:41:50 AM Referred By: REFERRED SELF Confirmed By: Sriram Hernandez
== END 2024-11-06 14:35 | disposition home or self-care (01) | DRG 281 ==
LOC: ED 09:46 → SUATTDRO 13:15 → 2S 13:15
DX: I10 Essential (primary) hypertension; I25.10 Atherosclerotic heart disease of native coronary artery without angina pectoris; F17.220 Nicotine dependence, chewing tobacco, uncomplicated; F17.210 Nicotine dependence, cigarettes, uncomplicated; C15.4 Malignant neoplasm of middle third of esophagus; C78.01 Secondary malignant neoplasm of right lung; E87.6 Hypokalemia; Z92.3 Personal history of irradiation; I21.4 Non-ST elevation (NSTEMI) myocardial infarction; C78.02 Secondary malignant neoplasm of left lung; I77.810 Thoracic aortic ectasia